=== PATIENT | female | born 1995 | race African-American/Black ===

== ENCOUNTER 2019-05-14 08:15 | Emergency (ER) | payer SELFPAY ==
[2019-05-14 08:30] VITALS: BP 120/81; PULSE 80; TEMP 98.3; BMI 37.6
--- NOTE | 2019-05-14 08:52 | PDOC ---
History of Present Illness - General Chief Complaint: Cold Symptoms Stated Complaint: COUGH Time Seen by Provider: 05/14/19 08:32 History Source: Patient Exam Limitations: Clinical Condition - History of Present Illness Initial Comments: 05/14/19 08:52 Patient with no significant past medical history present with complaint of 5- day history of persistent dry cough which is worse at night, nasal congestion, runny nose. Denies fever, chills, body aches, recent travel or sick contacts. Patient reported taking NyQuil [id number] medication for symptoms without improvement. Denies any other symptoms Is this a multiple visit Asthma Patient?: No Timing/Duration: other (5 days) Past History - Past Medical History Allergies/Adverse Reactions: Allergies Allergy/AdvReac Type Severity Reaction Status Date / Time No Known Allergies Allergy Verified 05/14/19 08:29 Home Medications: Ambulatory Orders Benzonatate [Tessalon Pearls -] 100 mg PO Q8H PRN #21 capsule 05/14/19 Ipratropium [place] 2 spray NS BID PRN 5 Days #1 spray 05/14/19 Methylprednisolone [Medrol Dose Lizandro] 4 mg PO ASDIR #21 tablet 05/14/19 Montelukast Na [Singulair -] 10 mg PO DAILY #10 tablet 05/14/19 COPD: No - Immunization History Immunization Up to Date: No - Psycho Social/Smoking Cessation Hx Smoking History: Never smoked Have you smoked in the past 12 months: No Information on smoking cessation initiated: No Hx Alcohol Use: No Drug/Substance Use Hx: No Review of Systems - Review of Systems Able to Perform ROS?: Yes Is the patient limited Nigerien proficient: No Constitutional: No: Chills, Fever, Malaise HEENTM: Yes: Symptoms Reported, See HPI, Nose Congestion. No: Eye Pain, Blurred Vision, Tearing, Recent change in vision, Double Vision, Cataracts, Ear Pain, Ocular Prothesis, Ear Discharge, Nose Pain, Tinnitus, Nose Bleeding, Hearing Loss, Throat Pain, Throat Swelling, Mouth Pain, Dental Problems, Difficulty Swallowing, Mouth Swelling, Other Respiratory: Yes: Symptoms reported, See HPI, Cough. No: Orthopnea, Shortness of Breath, SOB with Exertion, SOB at Rest, Stridor, Wheezing, Productive cough, Hemoptysis, Other Cardiac (ROS): No: Symptoms Reported, See HPI, Chest Pain, Edema, Irregular Heart Rate, Lightheadedness, Palpitations, Syncope, Chest Tightness, Other ABD/GI: No: Symptoms Reported, Nausea, Vomiting Musculoskeletal: No: Symptoms Reported Integumentary: No: Symptoms Reported, Rash Neurological: No: Symptoms reported, Headache, Numbness, Dizziness All Other Systems: Reviewed and Negative *Physical Exam - Vital Signs Last Vital Signs Temp Pulse Resp BP Pulse Ox 98.3 F 80 18 120/81 98 05/14/19 08:26 05/14/19 08:26 05/14/19 08:26 05/14/19 08:26 05/14/19 08:26 - Physical Exam 05/14/19 08:48 GENERAL: Well developed, well nourished. Awake and alert. No acute distress. HEENT: Bilateral nasal congestion. Normocephalic, atraumatic. PERRLA, EOMI. No conjunctival pallor. Sclera are non-icteric. Moist mucous membranes. Oropharynx is clear. NECK: Supple. Full ROM. CARDIOVASCULAR: Regular rate and rhythm. No murmurs, rubs, or gallops. Distal pulses are 2+ and symmetric. PULMONARY: No evidence of respiratory distress. Lungs clear to auscultation bilaterally. No wheezing, rales or rhonchi. ABDOMINAL: Soft. Non-tender. Non-distended. No rebound or guarding. No organomegaly. Normoactive bowel sounds. MUSCULOSKELETAL Normal range of motion at all joints. SKIN: Warm and dry. Normal capillary refill. No rashes. NEUROLOGICAL: Alert, awake, appropriate. Gait is normal without ataxia. PSYCHIATRIC: Cooperative. Good eye contact. Appropriate mood General Appearance: Yes: Nourished, Appropriately Dressed. No: Apparent Distress Medical Decision Making - Medical Decision Making 05/14/19 08:53 Patient with no significant past medical history present with complaint of 5- day history of persistent dry cough which is worse at night, nasal congestion, runny nose. Denies fever, chills, body aches, recent travel or sick contacts. Patient reported taking NyQuil [id number] medication for symptoms without improvement. Denies any other symptoms Exam significant for bilateral nasal congestion otherwise unremarkable exam. Lungs clear to auscultation bilateral and normal cardio exam. Patient symptoms likely viral URI and stable for outpatient management on Tessalon Perles as needed for cough and Medrol Lizandro for congestion with Atrovent nasal spray and Singulair for nasal congestion with advised to increase fluid intake and follow- up with PCP Discharge - Discharge Information Problems reviewed: Yes Clinical Impression/Diagnosis: URI, acute, Cough Condition: Stable Disposition: HOME - Admission No - Additional Discharge Information Prescriptions: Benzonatate [Tessalon Pearls -] 100 mg PO Q8H PRN #21 capsule PRN Reason: Cough Ipratropium [place] 2 spray NS BID PRN 5 Days #1 spray PRN Reason: nasal congestion Methylprednisolone [Medrol Dose Lizandro] 4 mg PO ASDIR #21 tablet Montelukast Na [Singulair -] 10 mg PO DAILY #10 tablet - Follow up/Referral - Patient Discharge Instructions Patient Printed Discharge Instructions: DI for Viral Upper Respiratory Infection -- Adult Additional Instructions: Take prescribed medication as prescribed for cough and congestion. Increase fluid intake. Follow-up with primary care as needed - Post Discharge Activity
== END 2019-05-14 09:00 | disposition home or self-care (01) ==
LOC: JERFT 08:15
DX: J06.9 Acute upper respiratory infection, unspecified (principal)
CPT/HCPCS: 99281-25